=== PATIENT | male | born 2000 | race Caucasian/White ===

== ENCOUNTER 2024-04-20 16:57 | Emergency (ER) | payer OTHER ==
[~2024-04-20] VITALS: Ht 160 cm; Wt 73.5 kg
[2024-04-20 17:07] VITALS: BP 123/92; PULSE 110; RESP 15; TEMP 98.8; O2SAT 95
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
[2024-04-20 18:00] VITALS: O2SAT 98
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
[2024-04-20] MEDS: ACETAMINOPHEN 325 MG TAB PO ONE (18:14)
[2024-04-20] MEDS ORDERED: NAPR-337 PO (18:56)
--- NOTE | 2024-04-20 19:00 | NUR ---
Chart checked and completed. The patient's care was reviewed and supervised by TODD GLOVER RN.
--- NOTE | 2024-04-20 19:00 | NUR ---
Patient discharged with v/s stable. Written and verbal after care instructions given FOR NASAL FRACTURE Patient alert, oriented and verbalized understanding of instructions. Ambulatory with steady gait. All questions addressed prior to discharge. ID band removed. Patient advised to follow up with PMD. Rx of NAPROXEN given. Opportunity to ask questions provided and answered.
== END 2024-04-20 19:00 | disposition home or self-care (01) ==
LOC: MED 16:57
DX: S02.2XXA Fracture of nasal bones, initial encounter for closed fracture (principal); S09.90XA Unspecified injury of head, initial encounter; Z79.1 Long term (current) use of non-steroidal anti-inflammatories (NSAID); Y04.8XXA Assault by other bodily force, initial encounter; Y93.89 Activity, other specified; Y92.89 Other specified places as the place of occurrence of the external cause; Y99.8 Other external cause status
CPT/HCPCS: 70450; 70486; 99284